=== PATIENT | female | born 1980 | race Asian ===

== ENCOUNTER → 2020-05-26 | Outpatient (CLI) | payer OTHER ==
[~2020-05-26] MED LIST: HYDR-3240 PO; IBUP-1222 PO; PREN1TAB27 PO
== END | disposition home or self-care (01) ==
LOC: CFH 12:19
PROVIDERS: ATTEND Obstetrics & Gynecology
DX: Z12.31 Encounter for screening mammogram for malignant neoplasm of breast (principal)
CPT/HCPCS: 76641; 77063; 77067